=== PATIENT | male | born 1980 | race Caucasian/White ===

== ENCOUNTER 2020-08-09 13:27 | Emergency (ER) | payer OTHER ==
[~2020-08-09] VITALS: Ht 172.7 cm; Wt 81.7 kg
[~2020-08-09 13:27] MED LIST: CEPHALEXIN 500500 M3 PO; CIPROFLOXIN HC2.5 M1 OTIC
[2020-08-09 13:38] VITALS: BP 157/104
== END 2020-08-09 13:39 | disposition left against medical advice (07) ==
LOC: M.ERS 13:27
DX: I10 Essential (primary) hypertension (principal); Z53.21 Procedure and treatment not carried out due to patient leaving prior to being seen by health care provider